=== PATIENT | male | born 1965 | race American Indian/Alaskan Native ===

== ENCOUNTER 2018-12-11 04:17 | Inpatient (IN) | payer MEDICAID ==
[~2018-12-11] VITALS: Ht 176.5 cm; Wt 103.0 kg
[2018-12-11 06:00] LABS: Hemoglobin 12.3 g/dL (13.5-17.5); Red Cell Distribution Width 14.7 % (11.8-14.3)
[2018-12-11 06:02] LABS: Basophils # (auto) 0.1 uL; Eosinophils # (auto) 0.3 uL; Eosinophils % (auto) 5.2 % (0.0-7.0); Hematocrit 37.4 % (41.0-53.0); Lymphocytes # (auto) 1.5 uL; Lymphocytes % (auto) 26.5 % (10.0-50.0); Mean Corpuscular Hemoglobin 34.8 pg (28.0-32.0); Mean Corpuscular Hgb Conc. 32.9 g/dL (32.0-36.0); Mean Corpuscular Volume 105.5 fL (80.0-100.0); Monocytes # (auto) 0.6 uL; Monocytes % (auto) 10.8 % (0.0-12.0); Neutrophils # (auto) 3.3 uL; Neutrophils % (auto) 56.5 % (37.0-80.0); Platelet Count (auto) 80 10^3/uL (140-450); Red Blood Cells 3.55 10^6/uL (4.5-5.90); White Blood Cell 5.8 10^3/uL (4.4-10.8)
[2018-12-11 06:14] LABS: Alanine Aminotransferase 51 U/L (16-61); Albumin 2.6 g/dL (3.4-5.0); Anion Gap 7 (5-15); Blood Urea Nitrogen 43 mg/dL (7-18); Calcium 8.7 mg/dL (8.5-10.1); Carbon Dioxide 18 mmol/L (21-32); Chloride 118 mmol/L (98-107); Glucose 187 mg/dL (74-106); Magnesium 1.6 mg/dL (1.6-2.6); Sodium 143 mmol/L (136-145)
[2018-12-11 06:20] LABS: Alkaline Phosphatase 181 U/L (45-117); Aspartate Aminotransferase 43 U/L (15-37); BUN/Creatinine Ratio 13.4; Bilirubin, Total 1.4 mg/dL (0.2-1.0); GFR African American 26 mL/min; GFR Non-African American 22 mL/min; Total Protein 7.7 g/dL (6.4-8.2)
[2018-12-11 06:23] LABS: Urine Bacteria FEW /hpf (None Seen); Urine Blood Negative /uL (Negative); Urine Hyaline Cast FEW /lpf (0 - 2); Urine Specific Gravity 1.015 (1.001-1.035); Urine WBC 1 /hpf (0 - 3)
[2018-12-11] MEDS ORDERED: AML5T PO (09:53)
[2018-12-11] MEDS ORDERED: SIMV-13 PO (09:53)
[2018-12-11] MEDS ORDERED: TACR1CAP4 PO (09:53)
[2018-12-11] MEDS ORDERED: DIAZ10TA3 PO (09:53)
[2018-12-11] MEDS ORDERED: PRE5T PO (09:53)
[2018-12-11] MEDS ORDERED: OMEP20TA PO (09:53)
[2018-12-11] MEDS ORDERED: LOSA-69 PO (09:53)
[2018-12-11] MEDS ORDERED: HYDR-4833 PO (09:53)
[2018-12-11] MEDS ORDERED: METO-159 PO (09:53)
[2018-12-11] MEDS ORDERED: methylPREDNISolone SOD SUCC 40 MG/ML VL IV ONE (10:00)
[2018-12-11] MEDS ORDERED: SODIUM CHLORIDE 0.9% 1,000 ML IV ONE ×2 (10:00)
[2018-12-11] MEDS ORDERED: LEVOFLOXACIN 500MG 100 ML IV ONE (12:45)
[2018-12-11] MEDS ORDERED: MORPHINE SULF INJ 2 MG/ML SYRINGE 1ML IV PRN (12:45)
[2018-12-11] MEDS ORDERED: NITROGLYCERIN 0.4 MG SL TAB SL PRN (12:45)
[2018-12-11] MEDS ORDERED: MORPHINE SULFATE 4 MG/ML SYR/VIAL IV PRN ×2 (12:45)
[2018-12-11] MEDS ORDERED: DEXTROSE (50%) 50ML SYRG IV PRN (12:45)
[2018-12-11] MEDS: SODIUM CHLORIDE 0.9% 1,000 ML IV SCH ×2 (12:50→22:36)
[2018-12-11] MEDS ORDERED: METOPROLOL TARTRATE 50 MG TAB PO ONE (13:00)
[2018-12-11] MEDS ORDERED: PANTOPRAZOLE 40 MG TAB PO ONE (13:00)
[2018-12-11 13:03] LABS: Amylase 60 U/L (25-115); Lipase 203 U/L (73-393)
[2018-12-11] MEDS ORDERED: GLIM1TAB2 PO (15:35)
[2018-12-11 17:04] VITALS: BP 115/76
[2018-12-11] MEDS ORDERED: LACTULOSE 20Gm/30ML SOLN PR ONE (17:30)
[2018-12-11] MEDS: ACCU-CHEK COMFORT CURVE STRIP VI SCH ×2 (18:22→23:23)
[2018-12-11] MEDS: InsuLIN REG 1unit/0.01ml Soln (100units/ml) SC SCH ×2 (18:22→23:25)
--- NOTE | 2018-12-11 19:30 | NUR ---
Opening Shift Note Assumed care of patient, awake and alert. at bedside. No S/S of distress/SOB or pain. Instructed on POC and to call for assist PRN, will continue to monitor for changes Q1hr and PRN. Bed locked and in lowest position, call light within reach.
--- NOTE | 2018-12-11 20:00 | NUR ---
U/S TECH AT BEDSIDE
[2018-12-11 22:00] VITALS: BP 127/79
[2018-12-11] MEDS: methylPREDNISolone SOD SUCC 40 MG/ML VL IV SCH (22:02)
[2018-12-11] MEDS: TACROLIMUS 1 MG CAP PO SCH (22:02)
[2018-12-11] MEDS: METOPROLOL TARTRATE 50 MG TAB PO SCH (22:02)
[2018-12-11] MEDS: LACTULOSE 20Gm/30ML SOLN PO SCH (23:22)
[2018-12-11] MEDS: LACTULOSE 20Gm/30ML SOLN PR SCH (23:26)
--- NOTE | 2018-12-12 00:32 | NUR ---
STOOL SAMPLE SENT
[2018-12-12] MEDS: LACTULOSE 20Gm/30ML SOLN PO SCH ×4 (00:33→17:43)
[2018-12-12 05:00] VITALS: BP 127/79
--- NOTE | 2018-12-12 05:45 | NUR ---
IV insertion IV access obtained, via clean sterile technique by inserting 22 gauge catheter at R. Wrist after attempt(s). IV secured properly. No trauma to site. Patient tolerated procedure well.
[2018-12-12] MEDS: ACCU-CHEK COMFORT CURVE STRIP VI SCH ×4 (05:57→23:57)
[2018-12-12] MEDS: InsuLIN REG 1unit/0.01ml Soln (100units/ml) SC SCH ×4 (05:57→23:56)
[2018-12-12] MEDS: LACTULOSE 20Gm/30ML SOLN PR SCH ×3 (06:00→17:43)
[2018-12-12 06:54] LABS: Basophils # (auto) 0 uL; Basophils % (auto) 0.1 % (0.0-2.0); Eosinophils # (auto) 0 uL; Hematocrit 30.4 % (41.0-53.0); Hemoglobin 10.2 g/dL (13.5-17.5); Lymphocytes # (auto) 0.3 uL; Lymphocytes % (auto) 5.3 % (10.0-50.0); Mean Corpuscular Hemoglobin 35.3 pg (28.0-32.0); Mean Corpuscular Hgb Conc. 33.5 g/dL (32.0-36.0); Mean Corpuscular Volume 105.4 fL (80.0-100.0); Monocytes # (auto) 0.1 uL; Monocytes % (auto) 0.8 % (0.0-12.0); Neutrophils % (auto) 93.8 % (37.0-80.0); Nucleated Red Blood Cells % 0.1 %; Red Blood Cells 2.88 10^6/uL (4.5-5.90); Red Cell Distribution Width 14.1 % (11.8-14.3); White Blood Cell 6.4 10^3/uL (4.4-10.8)
[2018-12-12 07:26] LABS: Albumin 1.9 g/dL (3.4-5.0); BUN/Creatinine Ratio 16.1; Calcium 7.4 mg/dL (8.5-10.1); Potassium 5.2 mmol/L (3.5-5.1)
--- NOTE | 2018-12-12 07:26 | NUR ---
CLOSING NOTE REPORT ENDORSED TO DAY RN , pt resting no s/sx's of distress or sob noted
[2018-12-12 07:28] LABS: Bilirubin, Total 1.3 mg/dL (0.2-1.0); Total Protein 5.9 g/dL (6.4-8.2)
[2018-12-12 07:52] LABS: Platelet Count (auto) 53 10^3/uL (140-450)
--- NOTE | 2018-12-12 08:30 | NUR ---
OPENING SHIFT NOTE Assumed care of patient, awake and a&oX4. No S/S of distress/SOB or pain. Family is currently at bedside. Patient is able to ambulate independently. 20 gauge IV in right hand is patent and currently running D5 1/2 NS with 50ml sodium bicarb. Instructed on POC and to call for assist PRN. Bed left in low locked position, and call pulido is within reach. Will continue to monitor for changes PRN.
[2018-12-12 09:00] VITALS: BP 129/80
[2018-12-12] MEDS: SODIUM CHLORIDE 0.9% 1,000 ML IV SCH (09:04)
[2018-12-12] MEDS ORDERED: LEVOFLOXACIN 250MG 50 ML IV SCH (10:00)
[2018-12-12] MEDS: LEVOFLOXACIN 250MG 50 ML IV SCH (10:26)
[2018-12-12] MEDS: methylPREDNISolone SOD SUCC 40 MG/ML VL IV SCH (10:26)
[2018-12-12] MEDS: TACROLIMUS 1 MG CAP PO SCH (10:27)
[2018-12-12] MEDS: PANTOPRAZOLE 40 MG TAB PO SCH (10:27)
[2018-12-12] MEDS: METOPROLOL TARTRATE 50 MG TAB PO SCH ×2 (10:27→22:00)
[2018-12-12] MEDS: SODIUM BICARBONATE 50ML VIAL 50 ML in D5W/SOD CHL 0.45% 1,000 ML IV SCH ×2 (11:15→23:56)
[2018-12-12] MEDS: SUCRALFATE 1 GM/10 ML ORAL SUSP PO SCH ×2 (11:30→17:00)
[2018-12-12 12:00] VITALS: BP 142/88
[2018-12-12] MEDS ORDERED: ESOMEPRAZOLE IV ONE (12:00)
[2018-12-12] MEDS ORDERED: SODIUM CHL 0.9% IV ONE (12:00)
[2018-12-12] MEDS ORDERED: ESOMEPRAZOLE IV SCH (12:15)
[2018-12-12] MEDS ORDERED: SODIUM CHL 0.9% IV SCH (12:15)
[2018-12-12 13:12] LABS: Creatinine, Urine 228 mg/dL (30.0-125.0); Sodium Urine 31 mmol/L (40-220)
[2018-12-12 16:33] VITALS: BP 135/95
[2018-12-12 22:00] VITALS: BP 131/74
[2018-12-12] MEDS: TACROLIMUS 0.5 MG CAP PO SCH (22:00)
[2018-12-13] MEDS: InsuLIN REG 1unit/0.01ml Soln (100units/ml) SC SCH ×5 (00:05→23:19)
[2018-12-13 05:00] VITALS: BP 133/78
[2018-12-13] MEDS: LACTULOSE 20Gm/30ML SOLN PR SCH ×2 (06:00)
[2018-12-13 06:35] LABS: Potassium 4.2 mmol/L (3.5-5.1)
[2018-12-13 06:42] LABS: Albumin 1.6 g/dL (3.4-5.0); BUN/Creatinine Ratio 16.4; Bilirubin, Total 0.7 mg/dL (0.2-1.0); Calcium 6.6 mg/dL (8.5-10.1); Phosphorus 3.4 mg/dL (2.5-4.90); Total Protein 4.7 g/dL (6.4-8.2)
[2018-12-13] MEDS: LACTULOSE 20Gm/30ML SOLN PO SCH ×2 (07:04)
[2018-12-13] MEDS: ACCU-CHEK COMFORT CURVE STRIP VI SCH ×4 (07:05→23:17)
[2018-12-13] MEDS: SUCRALFATE 1 GM/10 ML ORAL SUSP PO SCH ×3 (07:07→17:45)
[2018-12-13 08:46] VITALS: BP 127/78
[2018-12-13] MEDS: PANTOPRAZOLE 40 MG TAB PO SCH (09:20)
[2018-12-13] MEDS: predniSONE 5 MG TAB PO SCH (09:20)
[2018-12-13] MEDS: LEVOFLOXACIN 250MG 50 ML IV SCH (09:20)
[2018-12-13] MEDS: METOPROLOL TARTRATE 50 MG TAB PO SCH ×2 (09:21→23:16)
[2018-12-13] MEDS: TACROLIMUS 0.5 MG CAP PO SCH ×2 (10:00→19:45)
[2018-12-13] MEDS: SODIUM BICARBONATE 50ML VIAL 50 ML in D5W/SOD CHL 0.45% 1,000 ML IV SCH ×2 (11:49→18:45)
[2018-12-13 13:00] VITALS: BP 135/83
[2018-12-13 17:30] VITALS: BP 140/89
--- NOTE | 2018-12-13 19:05 | NUR ---
Change of shift given to geotechnical engineer RN. No distress noted.
--- NOTE | 2018-12-13 20:00 | NUR ---
OPENING SHIFT NOTE Assumed care of patient. Patient is A&Ox4. Patient denies pain at this time. No signs of distress noted. Family is at the bedside and POC discussed. 22 gauge IV in right hand is patent and currently running D5 1/2 NS with sodium bicarbonate at 100ml/hr. Patient is able to ambulate independently. Encouraged to call for assistance when needed. Will continue to monitor PRN.
[2018-12-13 22:00] VITALS: BP 142/89
[2018-12-14] MEDS: SODIUM BICARBONATE 50ML VIAL 50 ML in D5W/SOD CHL 0.45% 1,000 ML IV SCH ×2 (02:28→10:35)
[2018-12-14 05:00] VITALS: BP 136/82
[2018-12-14] MEDS: ACCU-CHEK COMFORT CURVE STRIP VI SCH ×2 (05:34→11:49)
[2018-12-14] MEDS: SUCRALFATE 1 GM/10 ML ORAL SUSP PO SCH ×3 (05:36→17:00)
[2018-12-14] MEDS: InsuLIN REG 1unit/0.01ml Soln (100units/ml) SC SCH ×2 (05:36→11:49)
[2018-12-14 05:37] LABS: Basophils # (auto) 0 uL; Basophils % (auto) 0.1 % (0.0-2.0); Eosinophils # (auto) 0 uL; Hemoglobin 10.9 g/dL (13.5-17.5); Monocytes # (auto) 0.5 uL; White Blood Cell 5.5 10^3/uL (4.4-10.8)
[2018-12-14 05:40] LABS: Hematocrit 31.9 % (41.0-53.0); Lymphocytes # (auto) 0.5 uL; Lymphocytes % (auto) 9.9 % (10.0-50.0); Mean Corpuscular Hemoglobin 35.1 pg (28.0-32.0); Mean Corpuscular Hgb Conc. 34.1 g/dL (32.0-36.0); Mean Corpuscular Volume 102.9 fL (80.0-100.0); Monocytes % (auto) 9.1 % (0.0-12.0); Neutrophils # (auto) 4.5 uL; Neutrophils % (auto) 80.9 % (37.0-80.0); Platelet Count (auto) 52 10^3/uL (140-450); Red Cell Distribution Width 14.1 % (11.8-14.3)
[2018-12-14 05:56] LABS: INR 1.32 (0.9-1.15); Partial Thromboplastin Time 29.3 sec (23.64-32.05)
[2018-12-14 05:59] LABS: Albumin 2.2 g/dL (3.4-5.0); Calcium 8.3 mg/dL (8.5-10.1); Potassium 4.6 mmol/L (3.5-5.1)
[2018-12-14 06:03] LABS: Bilirubin, Total 1.1 mg/dL (0.2-1.0); Total Protein 6.4 g/dL (6.4-8.2)
--- NOTE | 2018-12-14 07:20 | NUR ---
Opening Shift Note Assumed care of patient, awake and alert. No S/S of distress/SOB or pain. Instructed on POC and to call for assist PRN, will continue to monitor for changes Q1hr and PRN.
[2018-12-14 09:00] VITALS: BP 134/78
[2018-12-14] MEDS: METOPROLOL TARTRATE 50 MG TAB PO SCH (10:00)
[2018-12-14] MEDS ORDERED: LACTULOSE 20Gm/30ML SOLN PO SCH (10:00)
[2018-12-14] MEDS: TACROLIMUS 0.5 MG CAP PO SCH (10:00)
--- NOTE | 2018-12-14 10:20 | NUR ---
Patient's family administered tacrolimus. Patient's family and patient refuse to check medication into pharmacy. Explained the risks, patient still refuses to check in medications and administers his own home medication.
[2018-12-14] MEDS: predniSONE 5 MG TAB PO SCH (10:34)
[2018-12-14] MEDS: PANTOPRAZOLE 40 MG TAB PO SCH (10:34)
[2018-12-14] MEDS: LEVOFLOXACIN 250MG 50 ML IV SCH (10:35)
--- NOTE | 2018-12-14 11:21 | NUR ---
Dr. Cates at bedside discussing risks/benefits to patient and family. All questions/concerns addressed. No further questions. Patient consented to procedure.
--- NOTE | 2018-12-14 11:28 | NUR ---
Spoke with Dr. Cates. aware of labs, continue with procedure.
--- NOTE | 2018-12-14 11:37 | NUR ---
BEDSIDE PARACENTESIS Bedside paracentesis performed with Dr. Cates. Procedure started at 1121. Procedure ended at 1131. Removed 750 mL fluid. Fluid sent to lab. Patient tolerated procedure with no s/s of distress or SOB. Dressing is clean, dry, intact. VS are a follows: 1121: 116/64, HR 78, SPo2 98%, RR 20 1126: Spo2 97%, HR 77, RR 20, 113/62 1131: 129/70, HR 72, SpO2 98%, RR 18 1146: 137/91, SpO2 97%, RR 18, HR 82 1201: 115/75, HR 85m RR 16, SpO2 98% 1216: 126/ 72, HR 79, SpO2 97%, RR 18 1231: 127/76, HR 80, SpO2 96%, RR 18 1246: 125/75, HR 82, RR 18, SpO2 96%
[2018-12-14 13:00] VITALS: BP 126/79
--- NOTE | 2018-12-14 13:38 | NUR ---
[employer] specialist Edwina Bates spoke with patient and gave patient her contact information. Patient wishes to switch primary care service to Dr. Leeann Alvarez. does not provide care for patient's insurance but will be switching. Per family, they will continue with Dr. Bustamante and reach out to Dr. Alvarez's group later to obtain further information.
--- NOTE | 2018-12-14 13:38 | NUR ---
Patient given contact information for [employer] [facility] [employer] analyst Edwina Bates and Dr. Alvarez's office.
[2018-12-14 14:55] LABS: Hepatitis A Ab IgM Negative; Hepatitis B Core IgM Negative
[2018-12-14 14:57] LABS: Hepatitis C Antibody Negative (Negative)
--- NOTE | 2018-12-14 15:03 | NUR ---
HEP B ANTIGEN Received call from laboratory. Lab reported that hepatitis B surface antigen is positive. Informed Dr. Alves, per diagnosis cannot be made until antibody results are back. Continue with discharge. Per Dr. Alves have patient follow-up with PCP in 10 days.
[2018-12-14 15:07] LABS: Hepatitis B Surface Antigen Positive (Negative)
[2018-12-14 16:51] VITALS: BP 117/73
--- NOTE | 2018-12-14 17:22 | NUR ---
Discharge instructions given as ordered. Encourage to follow up with PMD as instructed. All questions and concerns addressed. Patient verbalized understanding. Medication reconciliation form completed and copy given to patient. Patient denies Home medications held in Pharmacy. IV removed with catheter intact, pressure dressing applied. Telemetry unit returned to [facility]. Patient taken to vehicle via wheelchair with all personal belongings, accompanied by staff and family member. No distress noted at time of departure.
[2018-12-14] MEDS ORDERED: TACROLIMUS 1 MG CAP PO SCH (22:00)
[2019-01-25] MEDS ORDERED: RIFA550T PO (12:24)
[2019-02-21] MEDS ORDERED: PROP60CA34 PO (11:39)
== END 2018-12-14 17:22 | disposition home or self-care (01) ==
LOC: ER 04:17 → TELE 12:42 → TELE-WESTW 14:05
PROVIDERS: ADMIT Internal Medicine; ATTEND Hospitalist
PROC: 0W9G3ZZ Drainage of Peritoneal Cavity, Percutaneous Approach (ICD-10-PCS; principal; 2018-12-14)
DX: K74.60 Unspecified cirrhosis of liver (principal); N17.0 Acute kidney failure with tubular necrosis; E11.22 Type 2 diabetes mellitus with diabetic chronic kidney disease; D69.6 Thrombocytopenia, unspecified; E87.0 Hyperosmolality and hypernatremia; I12.0 Hypertensive chronic kidney disease with stage 5 chronic kidney disease or end stage renal disease; E11.65 Type 2 diabetes mellitus with hyperglycemia; E44.1 Mild protein-calorie malnutrition; K72.90 Hepatic failure, unspecified without coma; K76.6 Portal hypertension; R18.8 Other ascites; N18.6 End stage renal disease; K80.20 Calculus of gallbladder without cholecystitis without obstruction; D63.8 Anemia in other chronic diseases classified elsewhere; E87.5 Hyperkalemia; E86.0 Dehydration; K52.9 Noninfective gastroenteritis and colitis, unspecified; Z94.0 Kidney transplant status; Z83.3 Family history of diabetes mellitus; Z82.3 Family history of stroke; Z88.1 Allergy status to other antibiotic agents; Z88.0 Allergy status to penicillin; Z88.2 Allergy status to sulfonamides; Z88.8 Allergy status to other drugs, medicaments and biological substances
CPT/HCPCS: 10022; 36415; 49083; 70450; 71045; 74176; 76700; 76705; 76775; 76942; 78226; 80053; 80074; 80197; 81001; 82140; 82150; 82270; 82306; 82570; 82947; 82962; 83036; 83690; 83735; 83970; 84100; 84300; 84484; 85025; 85048; 85610; 85652; 85730; 86850; 86900; 86901; 87045; 87205; 87493; 87899; 89051; 93005; 96361; 96365; G0378; J1815; J1956; J7507

== ENCOUNTER 2019-02-15 06:49 | Emergency (ER) | payer MEDICAID ==
[~2019-02-15] VITALS: Ht 175.3 cm; Wt 90.3 kg
[~2019-02-15 06:49] MED LIST: AML5T PO; DIAZ10TA3 PO; GLIM1TAB2 PO; HYDR-4833 PO; OMEP20TA PO; PRE5T PO; RIFA550T PO; SIMV-13 PO; TACR1CAP4 PO
[2019-02-15 08:16] LABS: Basophils # (auto) 0.1 uL; Eosinophils # (auto) 0.2 uL; Eosinophils % (auto) 2.8 % (0.0-7.0); Hemoglobin 11.7 g/dL (13.5-17.5); Lymphocytes # (auto) 0.7 uL; Monocytes # (auto) 1.2 uL; Neutrophils # (auto) 6.4 uL
[2019-02-15 08:18] LABS: Basophils % (auto) 0.8 % (0.0-2.0); Hematocrit 34.4 % (41.0-53.0); Lymphocytes % (auto) 8.1 % (10.0-50.0); Mean Corpuscular Hemoglobin 36.7 pg (28.0-32.0); Mean Corpuscular Hgb Conc. 34.1 g/dL (32.0-36.0); Mean Corpuscular Volume 107.8 fL (80.0-100.0); Monocytes % (auto) 13.9 % (0.0-12.0); Neutrophils % (auto) 74.4 % (37.0-80.0); Nucleated Red Blood Cells % 0.2 %; Red Blood Cells 3.19 10^6/uL (4.5-5.90); Red Cell Distribution Width 15.8 % (11.8-14.3); White Blood Cell 8.6 10^3/uL (4.4-10.8)
[2019-02-15 08:28] LABS: Potassium 3.5 mmol/L (3.5-5.1)
[2019-02-15 08:32] LABS: Albumin 2.8 g/dL (3.4-5.0); BUN/Creatinine Ratio 19.7; Calcium 8.8 mg/dL (8.5-10.1)
[2019-02-15 08:35] LABS: Bilirubin, Total 2.6 mg/dL (0.2-1.0); Total Protein 6.8 g/dL (6.4-8.2)
[2019-02-15] MEDS ORDERED: VANCOMYCIN 1GM/250ML 250 ML IV ONE (09:00)
[2019-02-15 09:05] LABS: Platelet Count (auto) 64 10^3/uL (140-450)
[2019-02-15 10:18] LABS: INR 1.27 (0.9-1.15)
[2019-02-15] MEDS ORDERED: SODIUM BICARBONATE 650 MG TAB PO ONE (14:00)
[2019-02-15] MEDS ORDERED: LACTULOSE 20Gm/30ML SOLN PO ONE (14:00)
[2019-02-15 14:02] LABS: Lactic Acid w/Reflex 4.7 mmol/L (0.4-2.0)
[2019-02-15 16:09] VITALS: BP 109/65
[2019-02-21] MEDS ORDERED: PROP60CA34 PO (11:39)
== END 2019-02-15 16:22 | disposition home or self-care (01) ==
LOC: ER 06:49
DX: K74.60 Unspecified cirrhosis of liver (principal); R18.8 Other ascites; N17.9 Acute kidney failure, unspecified; K85.90 Acute pancreatitis without necrosis or infection, unspecified; R74.8 Abnormal levels of other serum enzymes; E11.22 Type 2 diabetes mellitus with diabetic chronic kidney disease; I12.0 Hypertensive chronic kidney disease with stage 5 chronic kidney disease or end stage renal disease; N18.6 End stage renal disease; K21.9 Gastro-esophageal reflux disease without esophagitis; Z88.0 Allergy status to penicillin; Z88.2 Allergy status to sulfonamides; Z79.84 Long term (current) use of oral hypoglycemic drugs; Z79.899 Other long term (current) drug therapy
CPT/HCPCS: 36415; 49083; 74176; 76942; 80053; 82140; 82150; 83605; 83690; 85025; 85610; 87040; 96365; 96366; 99285; J3370

== ENCOUNTER 2019-02-26 13:20 | Inpatient (IN) | payer MEDICAID ==
[~2019-02-26] VITALS: Ht 177.8 cm; Wt 83.6 kg
[~2019-02-26 13:20] MED LIST changes: +PROP60CA34 PO; -TACR1CAP4 PO
[2019-02-26 14:12] LABS: Basophils # (auto) 0 uL; Basophils % (auto) 0.3 % (0.0-2.0); Hemoglobin 10.3 g/dL (13.5-17.5); Lymphocytes # (auto) 0.7 uL; Monocytes # (auto) 0.5 uL; Neutrophils # (auto) 3.6 uL; Nucleated Red Blood Cells % 0.1 %; Red Cell Distribution Width 15.7 % (11.8-14.3); White Blood Cell 4.8 10^3/uL (4.4-10.8)
[2019-02-26 14:14] LABS: Eosinophils # (auto) 0.1 uL; Eosinophils % (auto) 1.2 % (0.0-7.0); Hematocrit 30.3 % (41.0-53.0); Lymphocytes % (auto) 14.3 % (10.0-50.0); Mean Corpuscular Hemoglobin 36.5 pg (28.0-32.0); Mean Corpuscular Volume 107.4 fL (80.0-100.0); Neutrophils % (auto) 74.2 % (37.0-80.0); Platelet Count (auto) 59 10^3/uL (140-450); Red Blood Cells 2.82 10^6/uL (4.5-5.90)
[2019-02-26 14:28] LABS: INR 1.48 (0.9-1.15); Partial Thromboplastin Time 38.4 sec (23.64-32.05)
[2019-02-26 14:35] LABS: Albumin 2.7 g/dL (3.4-5.0); BUN/Creatinine Ratio 17.8; Calcium 8.6 mg/dL (8.5-10.1); Magnesium 2.1 mg/dL (1.6-2.6); Potassium 3.5 mmol/L (3.5-5.1)
[2019-02-26 14:40] LABS: Bilirubin, Total 1.8 mg/dL (0.2-1.0); Total Protein 5.9 g/dL (6.4-8.2)
[2019-02-26] MEDS ORDERED: DEXTROSE (50%) 50ML SYRG IV PRN (15:45)
[2019-02-26] MEDS ORDERED: MORPHINE SULF INJ 2 MG/ML SYRINGE 1ML IV PRN (15:45)
[2019-02-26] MEDS ORDERED: traMADol HCL 50 MG TAB PO PRN (15:45)
[2019-02-26] MEDS ORDERED: NITROGLYCERIN 0.4 MG SL TAB SL PRN (15:45)
[2019-02-26] MEDS ORDERED: LACTULOSE 20Gm/30ML SOLN PO ONE (15:45)
[2019-02-26] MEDS ORDERED: LACTULOSE 20Gm/30ML SOLN PR ONE (15:45)
[2019-02-26] MEDS ORDERED: PROMETHAZINE HCL 25 MG/ML 1ML IV PRN (15:45)
[2019-02-26] MEDS ORDERED: metroNIDAZOLE 500MG/100ML 100 ML IV SCH (16:00)
[2019-02-26] MEDS: ACCU-CHEK COMFORT CURVE STRIP VI SCH ×2 (17:16→23:25)
[2019-02-26] MEDS: InsuLIN REG 1unit/0.01ml Soln (100units/ml) SC SCH ×2 (17:16→23:25)
[2019-02-26 17:58] VITALS: BP 95/57
--- NOTE | 2019-02-26 18:00 | NUR ---
Telemetry admit from ER DENIS MAYS admitted to Telemetry unit after SBAR received. Patient oriented to Charmaine Sotelo primary RN, unit, room, bed, and unit policies regarding patient care and visiting hours. Patient now on continuous telemetry monitoring, tele box # 47 and telemetry reading on arrival to unit is SR 60. Patient placed on bedside oxygen @ 2L, weighed by bedscale and encouraged to call if they need something. Call light within reach, All questions and concerns addressed, patient able to respond in short sentence and nods to communicate understanding, spouse Vanessa at bedside to assist with admission. Extremity restriction band applied to left arm
--- NOTE | 2019-02-26 18:30 | NUR ---
BS 155
[2019-02-26 22:00] VITALS: BP 90/60
[2019-02-26] MEDS: rifAXIMin 550 MG TAB PO SCH (23:24)
[2019-02-26] MEDS: TACROLIMUS 1 MG CAP PO SCH (23:24)
[2019-02-27 05:00] VITALS: BP 92/62
--- NOTE | 2019-02-27 05:55 | NUR ---
pT HAS HAD NO OUTPUT THIS SHIFT AND BLADDER SCAN DONE AND 696MLS NOTED. HOSPITALIST PAGED AT THIS TIME.
[2019-02-27] MEDS: InsuLIN REG 1unit/0.01ml Soln (100units/ml) SC SCH ×2 (06:26→11:30)
[2019-02-27] MEDS: ACCU-CHEK COMFORT CURVE STRIP VI SCH ×2 (06:27→11:30)
--- NOTE | 2019-02-27 06:35 | NUR ---
No return page received from hospitalist and hospitalist paged again at this time.
--- NOTE | 2019-02-27 07:01 | NUR ---
No return page from hospitalist yet. Hospitalist paged again now.
--- NOTE | 2019-02-27 07:30 | NUR ---
Opening Shift Note Assumed care of patient, awake and alert. No S/S of distress/SOB or pain. Instructed on POC and to call for assist PRN, will continue to monitor for changes Q1hr and PRN. Patient is very lethargic. Responds to name but is not able to state where he is. Will continue to monitor.
--- NOTE | 2019-02-27 07:50 | NUR ---
Patient's at bedside. She states the patient does not recognize her. She states she has never seen the patient this ill. Informed that a doctor will see the patient today and let her know all results of tests.
[2019-02-27 08:00] VITALS: BP 91/62
--- NOTE | 2019-02-27 09:48 | NUR ---
Page placed to Dr. Alves re insertion of enciso cath.
[2019-02-27] MEDS ORDERED: predniSONE 5 MG TAB PO SCH (10:00)
[2019-02-27] MEDS ORDERED: PANTOPRAZOLE 40 MG TAB PO SCH (10:00)
[2019-02-27] MEDS: rifAXIMin 550 MG TAB PO SCH (10:10)
[2019-02-27] MEDS: TACROLIMUS 1 MG CAP PO SCH (10:10)
--- NOTE | 2019-02-27 10:30 | NUR ---
Patient assisted to the bathroom by and this RN. Patient is unsteady on his feet. Patient voided and had a large BM. Patient assisted back to bed.
[2019-02-27 12:00] VITALS: BP 95/62
--- NOTE | 2019-02-27 15:08 | NUR ---
Dr. Alves in to see patient. He spoke with the patient and his . Ammonia level ordered. If < 200 patient can be discharged.
--- NOTE | 2019-02-27 15:09 | NUR ---
Lab at bedside for blood draw.
[2019-02-27 16:26] VITALS: BP 95/62
--- NOTE | 2019-02-27 16:30 | NUR ---
Ammonia 41. Patient cleared for discharge.
[2019-02-27 16:59] VITALS: BP 93/53
== END 2019-02-27 17:30 | disposition home health service (06) | DRG 279 ==
LOC: EDBD 13:20 → ER 13:25 → TELE 13:26 → TELE-CENTR 18:22
PROVIDERS: ADMIT Internal Medicine; ATTEND Hospitalist
DX: K72.90 Hepatic failure, unspecified without coma (principal); E11.22 Type 2 diabetes mellitus with diabetic chronic kidney disease; D68.9 Coagulation defect, unspecified; D69.6 Thrombocytopenia, unspecified; I12.0 Hypertensive chronic kidney disease with stage 5 chronic kidney disease or end stage renal disease; N18.6 End stage renal disease; R18.8 Other ascites; D63.8 Anemia in other chronic diseases classified elsewhere; F17.200 Nicotine dependence, unspecified, uncomplicated; K21.9 Gastro-esophageal reflux disease without esophagitis; F41.9 Anxiety disorder, unspecified; K74.60 Unspecified cirrhosis of liver; Z88.0 Allergy status to penicillin; Z94.0 Kidney transplant status; Z88.2 Allergy status to sulfonamides; Z88.5 Allergy status to narcotic agent; Z88.1 Allergy status to other antibiotic agents
CPT/HCPCS: 36415; 70450; 71045; 80053; 82140; 82962; 83735; 84484; 85025; 85610; 85730; 87081; 93971; 94761; G0378; J1815; J7507